=== PATIENT | female | born 1980 | race Caucasian/White ===

== ENCOUNTER 2016-06-29 21:15 | Emergency (ER) | payer MEDICAID ==
[2016-06-29] MEDS ORDERED: PROPARACAINE 0.5% OPHTH DROPS 15 ML ONE (21:26)
[2016-06-29] MEDS ORDERED: ERYTHROMYCIN OPHTH OINT 1 GM TUBE LEFTEYE STA (21:34)
[2016-06-29] MEDS ORDERED: ERYTHROMYCIN OPHTH OINT 1 GM TUBE ONE (21:36)
== END 2016-06-29 21:50 | disposition home or self-care (01) ==
DX: H10.32 Unspecified acute conjunctivitis, left eye (principal); F17.200 Nicotine dependence, unspecified, uncomplicated
CPT/HCPCS: 99283; J3490

== ENCOUNTER 2016-10-25 10:04 | Emergency (ER) | payer OTHER, MEDICAID ==
--- NOTE | 2016-10-25 10:48 | ED Physician Documentation ---
PD HPI UPPER EXT INJURY - Stated complaint Stated Complaint: RT SHOULDER/ARM PX - Chief complaint Chief Complaint: Ext Problem - History obtained from History obtained from: Patient - History of Present Illness Location: Right, Shoulder, Other (R side of neck) Where injury occurred: Work Timing - onset: Today Timing - details: Abrupt onset Pain level max: 9 Pain level now: 9 Improved by: Rest Worsened by: Moving, Palpating Associated symptoms: No: Weakness, Numbness, Tingling, Swelling Similar symptoms before: Diagnosis (R shoulder pain) Recently seen: Not recently seen - Additonal information Additional information: shoulder had been hurting for a few days, 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 took aleve yesterday without relief. 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 HEENT: Chronic hearing loss Psych: None Musculoskeletal: None Derm: Other drug resistant infections - Past Surgical History Past Surgical 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 - Present Medications Home Medications: Ambulatory Orders Medication Instructions Recorded Confirmed Cyclobenzaprine [Flexeril] 10 mg PO TID PRN #20 tablet 10/25/16 Hydrocodone/Acetaminophen 1 - 2 each PO Q6H PRN #14 tablet 10/25/16 [Hydrocodon-Acetaminophen 5-325] Meloxicam [Mobic] 7.5 mg PO BID PRN #20 tablet 10/25/16 - Allergies Allergies/Adverse Reactions: Allergies Allergy/AdvReac Type Severity Reaction Status Date / Time No Known Drug Allergies Allergy Verified 02/18/16 10:34 - Social History Does the pt smoke?: Yes Smoking Status: Current every day smoker Does the pt drink ETOH?: Yes Does the pt have substance abuse?: Yes - Immunizations Immunizations are current?: Yes Immunizations: TDAP current <10years - POLST Patient has POLST: No PD ED PE NORMAL - Vitals Vital signs reviewed: Yes - General General: Alert and oriented X 3, No acute distress - HEENT HEENT: Moist mucous membranes - Neck Neck: Supple, no meningeal sign, No bony TTP, Other (paraspinal TTP R paracervical spasm.) - Cardiac Cardiac: RRR, Strong equal pulses - Respiratory Respiratory: No respiratory distress, Clear bilaterally - Back Back: No CVA TTP, No spinal TTP - Derm Derm: Warm and dry - Extremities Extremities: No deformity, Other (R shoulder diffuse TTP over the R shoulder. mild TTP over the AC joint. ) - Neuro Neuro: Alert and oriented X 3, cartographic drafter 2-12 intact, No motor deficit, No sensory deficit, Normal speech - Psych Psych: Normal mood, Normal affect Results - Vitals Vitals: Vital Signs - 24 hr 10/25/16 10/25/16 10:11 12:10 Temperature 36.3 C L Heart Rate 83 66 Respiratory 18 18 Rate Blood Pressure 106/65 128/64 O2 Saturation 100 100 Oxygen O2 Source Room air PD MEDICAL DECISION MAKING - ED course Complexity details: reviewed results, re-evaluated patient, considered differential, d/w patient ED course: Patient is a 35-year-old female who presents to the emergency department with what appears to be right shoulder pain of unclear etiology, most of the pain is with movement of the shoulder, possible rotator cuff injury? Very limited exam secondary to pain. Placed in a sling for comfort. Patient counseled regarding signs and symptoms for which I believe and urgent re-evaluation would be necessary. Patient with good understanding of and agreement to plan and is comfortable going home at this time This document was made in part using voice recognition software. While efforts are made to proofread this document, sound alike and grammatical errors may occur. Departure - Departure Disposition: 01 Home, Self Care Clinical Impression: Muscle strain Shoulder pain, right Qualifiers: Chronicity: acute Qualified Code(s): M25.511 - Pain in right shoulder Condition: Good Instructions: ED Shoulder Pain [facility] Follow-Up: your,doctor in 1 week [Other] Prescriptions: Cyclobenzaprine [Flexeril] 10 mg PO TID PRN #20 tablet PRN Reason: Spasms Hydrocodone/Acetaminophen [Hydrocodon-Acetaminophen 5-325] 1 - 2 each PO Q6H PRN #14 tablet PRN Reason: pain Meloxicam [Mobic] 7.5 mg PO BID PRN #20 tablet PRN Reason: pain Comments: Return if you worsen. You should wear the sling for the next 3-4 days. Continue to gently move your shoulder. No lifting greater than 5 pounds for 1 week. Follow-up with your doctor for repeat evaluation. Do not drink alcohol or drive while on narcotic pain medicine. Note that many narcotic pain relievers also contain tylenol/acetaminophen. Please ensure that your total dose of acetaminophen from all sources does not exceed 3 grams (3000mg) per day. You may constipated on this medication, take a stool softener such as "Colace" twice a day while you are on it. Also recommend a [id number] laxative such as senna or MiraLAX any day that you do not have a bowel movement. If you received narcotic pain medication in the emergency department, do not drive or operate machinery for the next 24 hours. Forms: Activity restrictions Discharge Date/Time: 10/25/16 12:17
[2016-10-25] MEDS ORDERED: KETOROLAC 60 MG/2 ML VIAL IM STA (10:54)
[2016-10-25] MEDS ORDERED: KETOROLAC 60 MG/2 ML VIAL ONE (10:55)
--- NOTE | 2016-10-25 11:43 | XRAY Preliminary Report ---
Exam: XR Shoulder 3 View RT IMPRESSION: Normal shoulder radiography. [facility] SITE ID: [id number]
--- NOTE | 2016-10-25 11:46 | XRAY Report ---
EXAM: RIGHT SHOULDER RADIOGRAPHY EXAM DATE: 10/25/2016 11:34 AM. CLINICAL HISTORY: R shoulder pain after lifting. COMPARISON: None. TECHNIQUE: 3 views. FINDINGS: Bones: Normal. No fracture or bone lesion. Joints: The glenohumeral and acromioclavicular joints are normal. Soft tissues: Unremarkable. Clear visualized lung. IMPRESSION: Normal shoulder radiography. [facility] Referring Provider Line: [phone] SITE ID: [id number]
[2016-10-25 12:11] VITALS: BP 128/64
== END 2016-10-25 12:17 | disposition home or self-care (01) ==
LOC: ED 10:04
DX: M25.511 Pain in right shoulder (principal); F17.200 Nicotine dependence, unspecified, uncomplicated; T14.8 Other injury of unspecified body region; X50.9XXA Other and unspecified overexertion or strenuous movements or postures, initial encounter; Y93.89 Activity, other specified; Y99.0 Civilian activity done for income or pay
CPT/HCPCS: 96372; 99283

== ENCOUNTER 2016-11-30 18:31 | Emergency (ER) | payer MEDICAID ==
[2016-11-30 18:56] VITALS: BP 105/69
[2016-11-30] MEDS ORDERED: TETANUS/DIPHTHERIA/PERTUSSIS 0.5 ML SYRINGE IM ONE ×2 (20:26→20:42)
--- NOTE | 2016-11-30 20:27 | ED Physician Documentation ---
PD HPI UPPER EXT INJURY - Stated complaint Stated Complaint: LT HAND LAC - Chief complaint Chief Complaint: Laceration - History obtained from History obtained from: Patient, Family - History of Present Illness Location: Left, Hand Type of injury: Puncture wound (nail) Where injury occurred: Home Timing - onset: How many hours ago (2) Timing - duration: Hours (2) Timing - details: Abrupt onset Pain level max: 5 Pain level now: 3 Improved by: Rest Worsened by: Moving, Palpating Associated symptoms: Swelling. No: Weakness, Numbness, Tingling Contributing factors: No: Anticoagulated, Prior ortho surgery Similar symptoms before: Has not had sx before Recently seen: Not recently seen - Additonal information Additional information: pt is right handed. Last td 10 years ago. 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 - Present Medications Home Medications: Ambulatory Orders Medication Instructions Recorded Confirmed Ibuprofen [Motrin] 800 mg PO Q8H PRN #30 tablet 11/30/16 - Allergies Allergies/Adverse Reactions: Allergies Allergy/AdvReac Type Severity Reaction Status Date / Time No Known Drug Allergies Allergy Verified 11/30/16 19:58 - Social History Does the pt smoke?: Yes Smoking Status: Current every day smoker Does the pt drink ETOH?: Yes Does the pt have substance abuse?: Yes - Immunizations Immunizations are current?: Yes Immunizations: TDAP current <10years - POLST Patient has POLST: No PD ED PE NORMAL - Vitals Vital signs reviewed: Yes - General General: Alert and oriented X 3, No acute distress - Derm Derm: Warm and dry - Extremities Extremities: Other (L hand - Small puncture wound to the thenar eminence of the left hand. This is on the palmar aspect. Neurovascularly intact. No evidence of tendon injury. No through and through puncture.) - Neuro Neuro: Alert and oriented X 3 - Psych Psych: Normal mood, Normal affect Results - Vitals Vitals: Vital Signs - 24 hr 11/30/16 18:54 Temperature 36.6 C Heart Rate 86 Respiratory 16 Rate Blood Pressure 105/69 O2 Saturation 96 Oxygen O2 Source Room air - Rads (name of study) Left hand x-ray Radiology: Prelim report reviewed, EMP read contemporaneously, See rad report ( No bony abnormality. No retained nail fragment. ) PD MEDICAL DECISION MAKING - ED course Complexity details: reviewed results, re-evaluated patient, considered differential, d/w patient, d/w family ED course: Patient is a 35-year-old female who presents to the emergency department with a left hand puncture wound. This was cleansed and bandaged in the emergency department. Antibiotic ointment applied. No acute findings on x-ray. Tdap given. Will prescribe Motrin for pain. She is well-appearing, nontoxic. Afebrile. Patient is right-handed. Warnings of infection and instructions on wound care given at bedside. Also counseled on how to minimize scarring. Patient counseled regarding signs and symptoms for which I believe and urgent re -evaluation would be necessary. Patient with good understanding of and agreement to plan and is comfortable going home at this time This document was made in part using voice recognition software. While efforts are made to proofread this document, sound alike and grammatical errors may occur. Departure - Departure Disposition: 01 Home, Self Care Clinical Impression: Puncture wound of hand Qualifiers: Encounter type: initial encounter Foreign body presence: without foreign body Laterality: left Qualified Code(s): S61.432A - Puncture wound without foreign body of left hand, initial encounter Condition: Good Instructions: ED Wound Puncture General Follow-Up: your,doctor in 1 week for recheck [Other] Prescriptions: Ibuprofen [Motrin] 800 mg PO Q8H PRN #30 tablet PRN Reason: PAIN &/OR FEVER Comments: Return if you worsen. Keep the wound clean and dry. Discharge Date/Time: 11/30/16 21:20
--- NOTE | 2016-11-30 20:48 | XRAY Preliminary Report ---
Exam: XR Hand 3 View LT IMPRESSION: No bony abnormality. No retained nail fragment. [facility] SITE ID: [id number]
--- NOTE | 2016-11-30 20:54 | XRAY Report ---
EXAM: LEFT HAND RADIOGRAPHY EXAM DATE: 11/30/2016 08:35 PM. CLINICAL HISTORY: Left hand puncture wound with nail to the third metacarpal, palmar approach.. COMPARISON: None. TECHNIQUE: 3 views. FINDINGS: Bones: Normal. No fractures or bone lesions. Joints: Normal. No subluxations. Soft Tissues: Marked amount of edema and small amount of air centered in the base of the thenar emine nce, anterior to the proximal second and third metacarpals. No radiopaque foreign bodies. IMPRESSION: No bony abnormality. No retained nail fragment. [facility] Referring Provider Line: [phone] SITE ID: [id number]
[2016-11-30] MEDS ORDERED: IBUPROFEN 800 MG TABLET PO STA (21:12)
[2016-11-30] MEDS ORDERED: IBUPROFEN 800 MG TABLET PO ONE (21:20)
== END 2016-11-30 21:20 | disposition home or self-care (01) ==
LOC: ED 18:31
DX: S61.432A Puncture wound without foreign body of left hand, initial encounter (principal); W45.0XXA Nail entering through skin, initial encounter; Y92.019 Unspecified place in single-family (private) house as the place of occurrence of the external cause; F17.200 Nicotine dependence, unspecified, uncomplicated
CPT/HCPCS: 73130; 90471; 90715; 99283; A9270

== ENCOUNTER 2016-12-16 17:54 | Emergency (ER) | payer MEDICAID ==
[2016-12-16 18:14] VITALS: BP 122/71
--- NOTE | 2016-12-16 19:06 | ED Physician Documentation ---
PD HPI UPPER EXT INJURY - Stated complaint Stated Complaint: RT HAND LAC - Chief complaint Chief Complaint: Laceration - History obtained from History obtained from: Patient - History of Present Illness Location: Right, Hand Type of injury: Laceration (from glass that broke while washing it) Where injury occurred: Home Timing - onset: Today Timing - details: Abrupt onset Improved by: Rest Worsened by: Palpating Associated symptoms: No: Weakness, Numbness Similar symptoms before: Has not had sx before Recently seen: Not recently seen Review of Systems Skin: reports: Laceration (s) Neurologic: denies: Focal weakness, Numbness PD PAST MEDICAL HISTORY - Past Medical History Cardiovascular: None Respiratory: None Neuro: None Endocrine/Autoimmune: None GI: None 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 HEENT: Chronic hearing loss Psych: None Musculoskeletal: None Derm: Other drug resistant infections - Past Surgical History 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 - Present Medications Home Medications: Ambulatory Orders Medication Instructions Recorded Confirmed Ibuprofen [Motrin] 800 mg PO Q8H PRN #30 tablet 11/30/16 - Allergies Allergies/Adverse Reactions: Allergies Allergy/AdvReac Type Severity Reaction Status Date / Time No Known Drug Allergies Allergy Verified 11/30/16 19:58 - Social History Does the pt smoke?: Yes Smoking Status: Current every day smoker Does the pt drink ETOH?: Yes Does the pt have substance abuse?: Yes - Immunizations Immunizations are current?: Yes Immunizations: TDAP current <10years - POLST Patient has POLST: No PD ED PE NORMAL - Vitals Vital signs reviewed: Yes - General General: Alert and oriented X 3, No acute distress, Well developed/nourished - Derm Derm: Normal color, Warm and dry - Extremities Extremities: Other (right hand with laceration longitudinal along dorsal hand proximal to index MCP, without FB nor tendon inviolvement. Strong extension of finger. ) - Neuro Neuro: No motor deficit, No sensory deficit Results - Vitals Vitals: Oxygen O2 Source Room air Procedures - Laceration (location) right hand over dorsal index finger MCP Length in cm: 2 Wound type: Linear, Clean Neurovascular status: Sensory intact, Motor intact Tendon involvement: Tendon intact Anesthesia: Lidocaine 1% with epi Wound Preparation: Irrigated copiously NS, Wound explored, To the base. No: FB identified Skin layer closure: Nylon, Running, Size #-0 - enter number (4) Other: Patient tolerated well, No complications, Neurovascular intact, Dressing applied, Tetanus UTD Complexity: Simple PD MEDICAL DECISION MAKING - ED course Complexity details: considered differential (appears to need sutures as opens with flexion of finger. Does not appear to get deep structures. ), d/w patient Departure - Departure Disposition: 01 Home, Self Care Clinical Impression: Laceration of right hand Qualifiers: Encounter type: initial encounter Foreign body presence: without foreign body Qualified Code(s): S61.411A - Laceration without foreign body of right hand, initial encounter Condition: Stable Record reviewed to determine appropriate education?: Yes Instructions: ED Laceration Hand Comments: It is okay to wash and shower. Clean off the wound twice a day with soap and water, or peroxide and water. Apply some antibiotic ointment to it to keep it moist. Also to watch for signs of infection such as purulence, redness or increasing pain. Return to your primary care or the ER at the specified time for suture removal. Tylenol or ibuprofen as needed for pains. Suture removal in 10 days. Initially light use of the hand for the first 2-3 days. Progress use of it as able based on comfort. Discharge Date/Time: 12/16/16 20:06
== END 2016-12-16 20:06 | disposition home or self-care (01) ==
LOC: ED 17:54
DX: S61.411A Laceration without foreign body of right hand, initial encounter (principal); W25.XXXA Contact with sharp glass, initial encounter; Y93.G1 Activity, food preparation and clean up; Y92.010 Kitchen of single-family (private) house as the place of occurrence of the external cause; F17.200 Nicotine dependence, unspecified, uncomplicated
CPT/HCPCS: 12001; 99282; 99283

== ENCOUNTER 2016-12-27 20:59 | Emergency (ER) | payer MEDICAID ==
[2016-12-27 21:19] VITALS: BP 112/70
== END 2016-12-27 22:20 | disposition left against medical advice (07) ==
LOC: ED 20:59
DX: Z53.21 Procedure and treatment not carried out due to patient leaving prior to being seen by health care provider (principal)
CPT/HCPCS: 99281

== ENCOUNTER 2017-05-16 11:24 | Emergency (ER) | payer MEDICAID ==
[2017-05-16 11:46] LABS: BILIRUBIN,URINE NEGATIVE (NEGATIVE); GLUCOSE, URINE (UA) NEGATIVE (NEGATIVE); KETONES,URINE (UA) NEGATIVE (NEGATIVE); LEUKOCYTE ESTERASE, URINE NEGATIVE (NEGATIVE); NITRITE,URINE NEGATIVE (NEGATIVE); OCCULT BLOOD,URINE NEGATIVE (NEGATIVE); PROTEIN,URINE NEGATIVE (NEGATIVE); UROBILINOGEN,URINE 0.2 (NORMAL) E.U./dL (NORMAL)
[2017-05-16 11:49] LABS: BASOPHILS # (AUTO) 0.1 10^3/uL (0.0-0.1); BASOPHILS % (AUTO) 1.9 %; EOSINOPHILS # (AUTO) 0.1 10^3/uL (0.0-0.7); HGB - HEMOGLOBIN 13.7 g/dL (12.0-16.0); LYMPHOCYTES # (AUTO) 1.6 10^3/uL (1.5-3.5); LYMPHOCYTES % (AUTO) 33.1 %; MEAN CORPUSCULAR VOLUME 90.5 fL (81.0-99.0); MEAN PLATELET VOLUME 8.8 fL (7.9-10.8); MONOCYTES # (AUTO) 0.5 10^3/uL (0.0-1.0); MONOCYTES % (AUTO) 10.8 %; NEUTROPHILS # (AUTO) 2.5 10^3/uL (1.5-6.6); NEUTROPHILS % (AUTO) 52.2 %; PLT - PLATELET COUNT 300 10^3/uL (130-450); RED BLOOD COUNT 4.72 10^6/uL (4.20-5.40); RED CELL DISTRIBUTION WIDTH 14.9 % (12.0-15.0); WHITE BLOOD COUNT 4.8 x10^3/uL (4.8-10.8)
[2017-05-16 11:49] LABS: CLARITY,URINE CLEAR (CLEAR); HCG UR QUAL NEGATIVE
[2017-05-16 12:04] LABS: ALBUMIN 4.3 g/dL (3.2-5.5); ALBUMIN/GLOBULIN RATIO 1.3 (1.0-2.2); BILIRUBIN,TOTAL 0.3 mg/dL (0.2-1.0); CALCIUM 9.2 mg/dL (8.5-10.3); CREATININE 0.8 mg/dL (0.4-1.0); TOTAL PROTEIN 7.6 g/dL (6.7-8.2)
[2017-05-16] MEDS ORDERED: IBUPROFEN 800 MG TABLET PO STA (13:27)
[2017-05-16] MEDS ORDERED: HYDROcod/ACETAM 5/325 MG TABLET PO STA (13:27)
--- NOTE | 2017-05-16 13:30 | ED Physician Documentation ---
PD HPI ABD PAIN - Stated complaint Stated Complaint: AB BLOATING - Chief complaint Chief Complaint: Abd Pain - History obtained from History obtained from: Patient - History of Present Illness Timing - onset: Other (Little over 2 weeks from her last menses, she developed diffuse abdominal pain and feels like she has been bloated since last night without vomiting or changes in bowel movements. No bleeding or spotting right now. She is status post tubal ligation, no other abdominal surgeries in her past.) Review of Systems Ten Systems: 10 systems reviewed and negative Constitutional: denies: Fever, Chills Respiratory: denies: Dyspnea GI: reports: Abdominal Pain. 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 - Present Medications Home Medications: Ambulatory Orders Medication Instructions Recorded Confirmed Ibuprofen [Motrin] 800 mg PO Q8H PRN #30 tablet 11/30/16 12/27/16 HYDROcod/ACETAM 5/325 [[place] 5/325] 1 - 2 ea PO Q6H PRN #15 tablet 05/16/17 Ibuprofen [Motrin] 800 mg PO Q8H PRN #30 tablet 05/16/17 - Allergies Allergies/Adverse Reactions: Allergies Allergy/AdvReac Type Severity Reaction Status Date / Time No Known Drug Allergies Allergy Verified 12/27/16 21:19 - Social History Does the pt smoke?: Yes Smoking Status: Current every day smoker Does the pt drink ETOH?: Yes Does the pt have substance abuse?: Yes - Immunizations Immunizations are current?: Yes Immunizations: TDAP current <10years - POLST Patient has POLST: No PD ED PE NORMAL - Vitals Vital signs reviewed: Yes - General General: Alert and oriented X 3, No acute distress - Abdomen Abdomen: Normal bowel sounds, Soft, Other (Mild diffuse tenderness which is most distinct in the left lower quadrant, no surgical signs.) - Extremities Extremities: Normal ROM s pain, No edema, No calf tenderness / cord - Neuro Neuro: Alert and oriented X 3, Normal speech - Psych Psych: Normal mood, Normal affect Results - Vitals Vitals: Vital Signs - 24 hr 05/16/17 05/16/17 11:32 15:13 Temperature 36.2 C L 35.4 C L Heart Rate 105 H 65 Respiratory 14 18 Rate Blood Pressure 110/71 97/56 L O2 Saturation 99 99 Oxygen O2 Source Room air - Labs Labs: Laboratory Tests 05/16/17 05/16/17 05/16/17 11:30 11:44 11:44 WBC 4.8 RBC 4.72 Hgb 13.7 Hct 42.7 MCV 90.5 MCH 29.0 MCHC 32.0 RDW 14.9 Plt Count 300 MPV 8.8 Neut # 2.5 Lymph # 1.6 [place] # 0.5 Eos # 0.1 Baso # 0.1 Absolute Nucleated RBC 0.00 Nucleated RBC % 0.0 Sodium 138 Potassium 4.0 Chloride 106 Carbon Dioxide 25 Anion Gap 7.0 BUN 10 Creatinine 0.8 Estimated GFR (MDRD) 82 L Glucose 88 Calcium 9.2 Total Bilirubin 0.3 AST 25 ALT 21 Alkaline Phosphatase 63 Total Protein 7.6 Albumin 4.3 Globulin 3.3 Albumin/Globulin Ratio 1.3 Lipase 21 L Urine Color YELLOW Urine Clarity CLEAR Urine pH 6.0 Ur Specific [place] 1.010 Urine Protein NEGATIVE Urine Glucose (UA) NEGATIVE Urine Ketones NEGATIVE Urine Occult Blood NEGATIVE Urine Nitrite NEGATIVE Urine Bilirubin NEGATIVE Urine Urobilinogen 0.2 (NORMAL) Ur Leukocyte Esterase NEGATIVE Ur Microscopic Review NOT INDICATED Urine Culture Comments NOT INDICATED Urine HCG, Qual NEGATIVE - Rads (name of study) Pelvic sono Radiology: Prelim report reviewed, See rad report (R ov cyst) PD MEDICAL DECISION MAKING - ED course ED course: 36-year-old woman presents with pelvic pain and some diffuse abdominal pain which based on history and physical is most likely ovarian in pathology and ovarian cyst is found without evidence of torsion and she looks comfortable after single dose of oral medications here. The patient and family were counseled as to the diagnosis and need for follow- up. I counseled the patient with regard to signs and symptoms that would necessitate an urgent reevaluation in the emergency department. They understand they are welcome to return at any time if worse or if not improving as expected. This document was made in part using voice recognition software. While efforts are made to proofread this documents, sound alike and grammatical errors may occur. Departure - Departure Disposition: 01 Home, Self Care Clinical Impression: Cyst of ovary Qualifiers: Laterality: right Qualified Code(s): N83.201 - Unspecified ovarian cyst, right side Condition: Good Record reviewed to determine appropriate education?: Yes Instructions: ED Pelvic Pain [facility] Follow-Up: [facility] [place] [Provider Group] Prescriptions: HYDROcod/ACETAM 5/325 [[place] 5/325] 1 - 2 ea PO Q6H PRN #15 tablet PRN Reason: Pain Ibuprofen [Motrin] 800 mg PO Q8H PRN #30 tablet PRN Reason: PAIN &/OR FEVER Comments: As discussed you should follow-up with your family day care worker for consideration for repeat ultrasound in 6 weeks. Return if worse. Do not drink or drive while taking narcotic pain medication. Note that many narcotic pain relievers also contain Tylenol/acetaminophen. Please ensure that your total dose of acetaminophen from all sources does not exceed 3 g (3000 mg) per day. You may get constipated while on this medication. Take a stool softener such as Colace twice a day while you are on it. Also add an [id number] laxative such as senna or MiraLAX on any day that you do not have a bowel movement. If you received a narcotic pain medication or sedative while in the emergency department, do not drive for the next 24 hours.
[2017-05-16 15:14] VITALS: BP 97/56
--- NOTE | 2017-05-16 17:10 | Ultrasound Report ---
DATE OF SERVICE: 05/16/2017 PELVIC ULTRASOUND: 05/16/2017 CLINICAL INDICATION: Pain. TECHNIQUE: Transabdominal pelvic ultrasound performed for global evaluation. Transvaginal pelvic ultrasound performed for detailed evaluation. Real-time scanning performed and static images obtained with Doppler. FINDINGS: The uterus is retroverted, measuring 8.5 x 5.0 x 4.2 cm. The endometrial echo complex measures 12 mm. No focal myometrial lesion is present. The right ovary measures 4.7 x 4.7 x 4.0 cm, and contains a 4.3 x 4.0 x 3.8 cm cyst. Normal flow was seen to the surrounding ovarian parenchyma. The left ovary measures 2.9 x 2.4 x 1.8 cm, and demonstrates follicles. No free fluid is present. IMPRESSION: A 4.3 CM RIGHT OVARIAN CYST, WITHOUT EVIDENCE OF TORSION AT THIS TIME. TD: 05/16/2017 18:10
== END 2017-05-16 15:27 | disposition home or self-care (01) ==
LOC: ED 11:24
DX: N83.201 Unspecified ovarian cyst, right side (principal); Z98.51 Tubal ligation status; F17.200 Nicotine dependence, unspecified, uncomplicated
CPT/HCPCS: 36415; 76830; 76856; 80053; 81003; 81025; 83690; 85025; 93975; 99283; A9270; 81001; 87086

== ENCOUNTER 2019-03-31 21:43 | Emergency (ER) | payer MEDICAID ==
--- NOTE | 2019-03-31 22:40 | XRAY Report ---
Reason: Ankle injury Procedure Date: 03/31/2019 Accession Number: [id number] / [id number] Procedure: XR - Ankle 3 View RT CPT Code: Final Report FULL RESULT: EXAM: RIGHT ANKLE RADIOGRAPHY EXAM DATE: 03/31/2019 10:08 PM. CLINICAL HISTORY: Ankle injury. COMPARISON: None. TECHNIQUE: 3 views. FINDINGS: Bones: Normal. No fractures or bone lesions. Joints: Normal. No effusion. No subluxations. The ankle mortise is normally aligned. Soft Tissues: Moderate lateral and anterior ankle soft tissue swelling. Small posterior calcaneal bone spur. IMPRESSION: Moderate lateral and anterior ankle soft tissue swelling. No evidence for acute fracture. [facility]
--- NOTE | 2019-03-31 22:59 | ED Physician Documentation ---
PD HPI LOWER EXT INJURY - Stated complaint Stated Complaint: R ANKLE PX - Chief complaint Chief Complaint: Trauma Ext - History obtained from History obtained from: Patient - History of Present Illness PD HPI LOW EXT INJURY LOCATION: Right, Ankle Type of injury: Twist (inversion walking down steps.) Timing - onset: Today Timing - details: Abrupt onset, Still present Worsened by: Moving, Palpating, Other (walking) Associated symptoms: Swelling. 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 HEENT: Chronic hearing loss Psych: None Musculoskeletal: None Derm: Other drug resistant infections - Past Surgical History Past Surgical History: Yes /SU[employer]OR[employer]: Tubal ligation - Present Medications Home Medications: Ambulatory Orders Medication Instructions Recorded Confirmed Ibuprofen [Motrin] 800 mg PO Q8H PRN #30 tablet 11/30/16 12/27/16 HYDROcod/ACETAM 5/325 [[place] 5/325] 1 - 2 ea PO Q6H PRN #15 tablet 05/16/17 Ibuprofen [Motrin] 800 mg PO Q8H PRN #30 tablet 05/16/17 - Allergies Allergies/Adverse Reactions: Allergies Allergy/AdvReac Type Severity Reaction Status Date / Time No Known Drug Allergies Allergy Verified 03/31/19 21:49 - Social History Does the pt smoke?: Yes Smoking Status: Current every day smoker Does the pt drink ETOH?: Yes Does the pt have substance abuse?: Yes - Immunizations Immunizations are current?: Yes Immunizations: TDAP current <10years - POLST Patient has POLST: No PD ED PE NORMAL - Vitals Vital signs reviewed: Yes - General General: Alert and oriented X 3, No acute distress, Well developed/nourished - Derm Derm: Normal color, Warm and dry - Extremities Extremities: Other (right ankle with tenderness and swelling anterolateral aspect. No gross laxity on mild stress testing. ) - Neuro Neuro: No motor deficit, No sensory deficit Results - Vitals Vitals: Oxygen O2 Source Room air - Rads (name of study) right ankle Radiology: Prelim report reviewed, See rad report (no fractures) PD MEDICAL DECISION MAKING - ED course Complexity details: reviewed results, considered differential (ankle sprain; no fracture), d/w patient Departure - Departure Disposition: 01 Home, Self Care Clinical Impression: Ankle sprain Qualifiers: Encounter type: initial encounter Involved ligament of ankle: anterior talofibular ligament Laterality: right Qualified Code(s): S93.491A - Sprain of other ligament of right ankle, initial encounter Condition: Stable Record reviewed to determine appropriate education?: Yes Instructions: ED Sprain Ankle Comments: Ankle brace when up and around for 3 to 4 weeks until fully healed. Crutches initially as needed for discomfort. Progress weightbearing as able. Ibuprofen 3 times a day for the next several days to a week. Add Tylenol if needed for pains. Rest ice and elevate it often to reduce swelling. Recheck if not improved well over the next week and fully better by 2 to 3 weeks Discharge Date/Time: 03/31/19 23:49
[2019-03-31] MEDS ORDERED: HYDROcod/ACETAM 5/325 MG TABLET PO STA (23:09)
[2019-03-31 23:51] VITALS: BP 105/55
== END 2019-03-31 23:49 | disposition home or self-care (01) ==
LOC: ED 21:43
DX: S93.491A Sprain of other ligament of right ankle, initial encounter (principal); X50.1XXA Overexertion from prolonged static or awkward postures, initial encounter; Y93.01 Activity, walking, marching and hiking; F17.200 Nicotine dependence, unspecified, uncomplicated
CPT/HCPCS: 73610; 99282; 99283; A9270

== ENCOUNTER 2023-10-07 19:52 | Emergency (ER) | payer MEDICAID ==
[2023-10-07 20:08] VITALS: BP 111/62; O2SAT 99
--- NOTE | 2023-10-07 20:55 | ED Physician Documentation ---
History of Present Illness - Stated complaint Stated Complaint: CAT ATTACK - Chief complaint Chief Complaint: Wound - History obtained from History obtained from: Patient - Additonal information Additional information: Patient is a 42-year-old female presenting for evaluation of multiple cat scratches and bites that she received tonight. Patient's sister has a new cat. Patient accidentally dropped something which startled the kitten and it then scratched and bit her several times on extremities. Patient's last tetanus within the last 10 years. Does not take a blood thinner. She did clean out the wounds prior to arrival here. 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 - Present Medications Home Medications: Ambulatory Orders Medication Instructions Recorded Confirmed Amox/Clav 875/125 [Augmentin] 1 each PO Q12H #14 tablet 10/07/23 DULoxetine [Cymbalta] 30 mg PO DAILY 10/07/23 10/07/23 - Allergies Allergies/Adverse Reactions: Allergies Allergy/AdvReac Type Severity Reaction Status Date / Time No Known Drug Allergies Allergy Verified 10/07/23 20:04 - Social History Does the pt smoke?: Yes Smoking Status: Current every day smoker Does the pt drink ETOH?: Yes Does the pt have substance abuse?: Yes - Immunizations Immunizations are current?: Yes Immunizations: TDAP current <10years - POLST Patient has POLST: No PD ED PE NORMAL - General General: Alert and oriented X 3, No acute distress, Well developed/nourished - HEENT HEENT: Atraumatic - Respiratory Respiratory: No respiratory distress - Derm Derm: Normal color - Extremities Extremities: Normal ROM s pain, Other (Multiple superficial lacerations (~1cm) to multiple sites including L leg and R hand; no bleeding, redness, drainage, swelling; ) - Neuro Neuro: Alert and oriented X 3, Normal speech Results - Vitals Vitals: Vital Signs - 24 hr 10/07/23 20:05 Heart Rate 80 Respiratory 18 Rate Blood Pressure 111/62 O2 Saturation 99 Oxygen O2 Source Room air PD Medical Decision Making - ED course ED course: Patient presenting for evaluation of multiple scratches and bites from startled cat owned by sister. Wounds appear superficial and not large enough or in areas where closure would be appropriate. Wounds that already been irrigated by patient. Will start patient on Augmentin. Patient counseled on wound care instructions as well as concerning symptoms to return for. Tetanus is up-to-date. Departure - Departure Disposition: 01 Home, Self Care Clinical Impression: Cat bite of lower leg, Cat bite of hand Condition: Stable Instructions: ED Bite Animal General Prescriptions: Amox/Clav 875/125 [Augmentin] 1 each PO Q12H #14 tablet Comments: We are starting you on a prophylactic antibiotic called Augmentin to help avoid an infection from the cat bites and scratches. I sent the prescription to [facility]. You can also use bacitracin over the wounds. Please do not use Neosporin. Return to the ER if you develop any worsening symptoms such as signs of infection which include redness, swelling, pain or abnormal drainage. Last tetanus on file 11/30/2016 Forms: PCP List Discharge Date/Time: 10/07/23 21:17
[2023-10-07] MEDS: AMOX/CLAV 875 MG/125 MG TABLET PO STA (21:08)
[2023-10-07] MEDS: BACITRACIN ZINC OINT 1 PACKET TOP STA (21:08)
== END 2023-10-07 21:17 | disposition home or self-care (01) ==
LOC: ED 19:52
DX: S81.859A Open bite, unspecified lower leg, initial encounter (principal); S61.459A Open bite of unspecified hand, initial encounter; W55.01XA Bitten by cat, initial encounter
CPT/HCPCS: 99283; A9270